=== PATIENT | male | born 1975 | race American Indian/Alaskan Native ===

== ENCOUNTER 2021-03-26 06:15 | Inpatient (IN) | payer OTHER ==
[2021-03-26 06:50] LABS: Hematocrit 38.2 % (35.5-45.6); Hemoglobin 13.7 gm/dl (11.8-15.2); Mean Corpuscular HGB Conc 36 % (32-34); Mean Corpuscular Volume 80 fl (84-94); Platelet Count 248 K/mm3 (140-440); Red Blood Count 4.79 M/mm3 (3.65-5.03); Red Cell Distribution Width 14.7 % (13.2-15.2)
[2021-03-26 07:02] LABS: BUN/Creatinine Ratio 10; Blood Urea Nitrogen 10 mg/dL (9-20); Calcium 8.5 mg/dL (8.4-10.2); Hemolysis Index 12
[2021-03-26] MEDS ORDERED: ACETAMINOPHEN 500 MG TAB PO ONE (07:20)
--- NOTE | 2021-03-26 07:57 | XRay Report ---
CHEST 2 VIEWS INDICATION: Chest discomfort shortness of breath rib pain. COMPARISON: None FINDINGS: Support devices: None. Heart: Within normal limits. Lungs/pleura: No acute air space or interstitial disease. No pneumothorax. Additional findings: No acute osseous abnormality is appreciated. There does appear to be bilateral c ervical ribs, left greater than right. IMPRESSION: No acute findings. Signer Name: Jose Christian Jr, MD Signed: 03/26/2021 7:53 AM Workstation Name: [id number]
[2021-03-26 08:06] LABS: Albumin 3.7 g/dL (3.9-5); Bilirubin,Direct 0.2 mg/dL (0-0.2)
--- NOTE | 2021-03-26 08:36 | Emergency Department Report ---
ED General Adult HPI - General Chief complaint: Pain General Stated complaint: RT RIB PAIN X4 DAYS Time Seen by Provider: 03/26/21 07:18 Source: patient, EMS Mode of arrival: Ambulatory Limitations: No Limitations - History of Present Illness Initial comments: 45-year-old -Russian male who is HIV positive and is noncompliant on no medications present to the emergency room reporting right upper quadrant and rib pain for 1 week. Patient is not vaccinated. Decrease in appetite fever chills and vomiting. Denies any diarrhea. Has no known drug allergies. Past medical history of HIV currently on no medications and no primary care provider. Patient presents with a fever of 101.6 mildly tachycardic at 98. Onset/Timin -: week(s) Location: chest (Right side), abdomen (Right side) Radiation: non-radiation Severity scale (0 -10): 5 Quality: stabbing, sharp Consistency: constant Improves with: none Worsens with: none Associated Symptoms: fever/chills, loss of appetite, nausea/vomiting (Vomiting) Treatments Prior to Arrival: none - Related Data Previous Rx's Medication Instructions Recorded Last Taken Type levoFLOXacin [Levaquin] 750 mg PO QDAY 5 Days #5 tablet 03/28/21 Unknown Rx Allergies Allergy/AdvReac Type Severity Reaction Status Date / Time No Known Allergies Allergy Unverified 03/26/21 06:21 ED Review of Systems ROS: Stated complaint: RT RIB PAIN X4 DAYS Other details as noted in HPI Comment: All other systems reviewed and negative ED Past Medical Hx - Past Medical History Previous Medical History?: Yes Hx HIV: Yes - Surgical History Past Surgical History?: No - Medications Home Medications: Home Medications Medication Instructions Recorded Confirmed Last Taken Type levoFLOXacin [Levaquin] 750 mg PO QDAY 5 Days #5 tablet 03/28/21 Unknown Rx ED Physical Exam - General Limitations: No Limitations General appearance: alert, in no apparent distress - Head Head exam: Present: atraumatic, normocephalic - Eye Eye exam: Present: normal appearance - ENT ENT exam: Present: normal external ear exam - Neck Neck exam: Present: normal inspection, full ROM - Respiratory Respiratory exam: Present: normal lung sounds bilaterally - Cardiovascular Cardiovascular Exam: Present: tachycardia - GI/Abdominal GI/Abdominal exam: Present: soft, tenderness. Absent: distended - Extremities Exam Extremities exam: Present: normal inspection, full ROM - Back Exam Back exam: Present: normal inspection, full ROM - Neurological Exam Neurological exam: Present: alert, oriented X3, normal gait - Psychiatric Psychiatric exam: Present: normal affect, normal mood - Skin Skin exam: Present: warm, dry, intact, normal color. Absent: rash ED Course Vital Signs 03/26/21 03/26/21 03/26/21 06:24 07:47 21:10 Temperature 101.0 F H Pulse Rate 98 H Respiratory 25 H 16 Rate Blood Pressure 133/76 O2 Sat by Pulse 94 97 Oximetry 03/27/21 03/27/21 03/27/21 21:46 22:16 22:30 Temperature Pulse Rate 54 L 58 L Respiratory 17 20 15 Rate Blood Pressure O2 Sat by Pulse 95 95 96 Oximetry 03/27/21 03/27/21 03/27/21 22:46 23:00 23:16 Temperature Pulse Rate 70 74 81 Respiratory 20 21 26 H Rate Blood Pressure 109/65 O2 Sat by Pulse 95 95 95 Oximetry 03/27/21 03/27/21 03/28/21 23:30 23:46 00:30 Temperature Pulse Rate 61 55 L 57 L Respiratory 21 19 22 Rate Blood Pressure 109/65 112/70 102/52 O2 Sat by Pulse 95 99 96 Oximetry 03/28/21 03/28/21 03/28/21 00:46 01:00 01:10 Temperature Pulse Rate 51 L 52 L 55 L Respiratory 22 18 20 Rate Blood Pressure 104/62 104/62 106/64 O2 Sat by Pulse 95 98 95 Oximetry 03/28/21 03/28/21 03/28/21 02:45 02:51 03:01 Temperature Pulse Rate Respiratory 19 17 19 Rate Blood Pressure O2 Sat by Pulse 95 98 96 Oximetry 03/28/21 03/28/21 03/28/21 03:11 03:21 03:31 Temperature Pulse Rate Respiratory 19 19 21 Rate Blood Pressure 106/58 O2 Sat by Pulse 96 96 96 Oximetry 03/28/21 03/28/21 03:41 03:51 Temperature Pulse Rate Respiratory 20 18 Rate Blood Pressure 109/66 109/66 O2 Sat by Pulse 96 96 Oximetry ED Medical Decision Making - Lab Data Result diagrams: 03/27/21 15:01 03/27/21 15:01 - Radiology Data Radiology results: report reviewed [facility] [address] [place] [id number] XRay Report Signed Patient: GAEL HAYNES MR#: [id number] 1 : 1975 Acct:[id number] Age/Sex: 45 / M ADM Date: 03/26/21 Loc: ED Attending Dr: Ordering Physician: ASHLYN ZACARIAS Date of Service: 03/26/21 Procedure(s): XR chest routine 2V Accession Number(s): [id number] cc: ASHLYN ZACARIAS Fluoro Time In Minutes: CHEST 2 VIEWS INDICATION: Chest discomfort shortness of breath rib pain. COMPARISON: None FINDINGS: Support devices: None. Heart: Within normal limits. Lungs/pleura: No acute air space or interstitial disease. No pneumothorax. Additional findings: No acute osseous abnormality is appreciated. There does appear to be bilateral cervical ribs, left greater than right. IMPRESSION: No acute findings. Signer Name: Jose Christian Jr, MD Signed: 03/26/2021 7:53 AM Workstation Name: [id number] Transcribed By: TTR Dictated By: JOSE CHRISTIAN JR, MD Electronically Authenticated By: JOSE CHRISTIAN JR, MD Signed Date/Time: 03/26/21752 DD/ 0 TD/TT: [facility] [address] [place] [id number] Cat Scan Report Signed Patient: GAEL HAYNES MR#: [id number] 1 : 1975 Acct:[id number] Age/Sex: 45 / M ADM Date: 03/26/21 Loc: ED Attending Dr: Ordering Physician: ASHLYN ZACARIAS Date of Service: 03/26/21 Procedure(s): CT abdomen pelvis w con Accession Number(s): [id number] cc: ASHLYN ZACARIAS CT abdomen pelvis w con INDICATION / CLINICAL INFORMATION: ruq TTP with fever. TECHNIQUE: Axial CT images were obtained through the abdomen and pelvis after IV contrast. All CT scans at this location are performed using CT dose reduction for ALARA by means of automated exposure control. COMPARISON: Chest radiograph from same day, 03/26/2021. FINDINGS: LOWER CHEST: There is airspace consolidation within the right lower lobe. LIVER: No significant abnormality GALLBLADDER/BILIARY TREE: No significant abnormality PANCREAS: No significant abnormality SPLEEN: No significant abnormality ADRENALS: No significant abnormality KIDNEYS / URETER: No significant abnormality URINARY BLADDER: No significant abnormality REPRODUCTIVE ORGANS: No significant abnormality STOMACH / BOWEL: No significant abnormality. The appendix is normal in caliber. LYMPH NODES: No significant adenopathy. VASCULATURE: No significant abnormality. OTHER: No free air, free fluid, or focal fluid collection is identified. SKELETAL SYSTEM: No acute osseous findings. IMPRESSION: 1. Airspace consolidation within the right lower lobe, most compatible with pneumonia. 2. No acute process of the abdomen or pelvis. Signer Name: Remi Garner MD Signed: 03/26/2021 10:46 AM Workstation Name: [id number] Transcribed By: ADAMARIS Dictated By: REMI GARNER MD Electronically Authenticated By: REMI GARNER MD Signed Date/Time: 03/26/21 1046 DD/ 1043 TD/TT: - Medical Decision Making 45-year-old -Russian male who is HIV positive and is noncompliant on no medications present to the emergency room reporting right upper quadrant and rib pain for 1 week. Patient is not vaccinated. Decrease in appetite fever chills and vomiting. Denies any diarrhea. Has no known drug allergies. Past medical history of HIV currently on no medications and no primary care provider. Patient presents with a fever of 101.6 mildly tachycardic at 98. Serum WBCs 20, mildly elevation of his LFTs, D-dimer is within normal limits, lipase is normal. Urinalysis pending acetaminophen ordered, INT normal saline CT abdomen and pelvis and Zosyn 3.37 mg have been ordered per sepsis protocol. Critical Care Time: Yes (35) Critical care attestation.: If time is entered above; I have spent that time in minutes in the direct care of this critically ill patient, excluding procedure time. ED Disposition Clinical Impression: Acute hypoxemic respiratory failure, Pneumonia, Suspected 2019 novel coronavirus infection, Sepsis, DVT prophylaxis HIV (human immunodeficiency virus infection) Qualifiers: HIV symptom status: unspecified Qualified Code(s): B20 - Human immunodeficiency virus [HIV] disease Disposition: 02 SHORT TERM HOSPITAL Is pt being admited?: Yes Condition: Fair
[2021-03-26] MEDS ORDERED: PIPERACILLIN/TAZOBACTAM 3.375 3.375 GM/50 ML BAG IV ONE (09:07)
[2021-03-26] MEDS ORDERED: SODIUM CHLORIDE 0.9% 1000 ML 1,000 ML IV ONE (09:12)
--- NOTE | 2021-03-26 10:51 | Cat Scan Report ---
CT abdomen pelvis w con INDICATION / CLINICAL INFORMATION: ruq TTP with fever. TECHNIQUE: Axial CT images were obtained through the abdomen and pelvis after IV contrast. All CT sc ans at this location are performed using CT dose reduction for ALARA by means of automated exposure c ontrol. COMPARISON: Chest radiograph from same day, 03/26/2021. FINDINGS: LOWER CHEST: There is airspace consolidation within the right lower lobe. LIVER: No significant abnormality GALLBLADDER/BILIARY TREE: No significant abnormality PANCREAS: No significant abnormality SPLEEN: No significant abnormality ADRENALS: No significant abnormality KIDNEYS / URETER: No significant abnormality URINARY BLADDER: No significant abnormality REPRODUCTIVE ORGANS: No significant abnormality STOMACH / BOWEL: No significant abnormality. The appendix is normal in caliber. LYMPH NODES: No significant adenopathy. VASCULATURE: No significant abnormality. OTHER: No free air, free fluid, or focal fluid collection is identified. SKELETAL SYSTEM: No acute osseous findings. IMPRESSION: 1. Airspace consolidation within the right lower lobe, most compatible with pneumonia. 2. No acute process of the abdomen or pelvis. Signer Name: Lukasz Garner MD Signed: 03/26/2021 10:46 AM Workstation Name: [id number]
[2021-03-26 11:05] LABS: Band Neutrophils # (Manual) 0.6 K/mm3; Platelet Estimate Consistent w Auto; RBC Morphology Normal; Smudge Cells 1+; Total Cells Counted 100
[2021-03-26] MEDS ORDERED: AZITHROMYCIN/NS 500 MG/250 ML 500 MG/250 ML BAG IV ONE (11:24)
[2021-03-26] MEDS ORDERED: dexAMETHasone 20 MG/5 ML VIAL IV ONE (11:24)
[2021-03-26] MEDS ORDERED: SODIUM CHLORIDE 0.9% 1000 ML IV SOLN IV ONE ×2 (11:43→12:43)
[2021-03-26] MEDS ORDERED: HYDROmorphone 1 MG/1 ML INJ IV PRN ×2 (11:43→12:32)
[2021-03-26] MEDS ORDERED: ACETAMINOPHEN 325 MG TAB PO PRN ×2 (12:32→12:43)
[2021-03-26] MEDS ORDERED: ALBUTEROL 2.5 MG/3 ML NEBU IH PRN (12:32)
[2021-03-26] MEDS ORDERED: oxyCODONE /ACETAMINOPHEN 5-325MG TAB PO PRN (12:32)
[2021-03-26] MEDS ORDERED: ONDANSETRON 4 MG/2 ML INJ IV PRN (12:32)
--- NOTE | 2021-03-26 12:46 | History and Physical Report ---
History of Present Illness Chief complaint: My side hurts History of present illness: 45 YO Male with HIV Disease not currently taking antiretroviral therapy presents to ED for evaluation. Patient reported "my side hurts". Patient states that he has experienced right flank discomfort over the past week with persistent symptoms over the same timeframe. Patient acknowledges malaise, fever, body aches, decreased exercise tolerance over the past 1 week with persistent and worsening symptoms over the same timeframe. EMS was notified and upon arrival the patient was found to be in distress and subsequently transported to [facility] for further care and evaluation of the aforementioned symptoms. The patient was seen and evaluated in the emergency department. All lab and imaging studies reviewed. The patient was found to have a pulse oximetry of 89% on room air which is consistent with acute hypoxemic respiratory failure. Patient was found to have a temperature of 101.1 F, as well as a respiratory rate in the 30s. CT scan revealed a right lower lobe pneumonia which was complicated by sepsis. Patient admitted to medical floor and initiated on sepsis protocol as well as coronavirus protocol. Patient denies chills, chest pain, palpitation, skin rash, recent ill contact, or known exposure to COVID-19. No prior admission for review. No medication listed at time of admission for reconciliation. Patient is not vaccinated against coronavirus. Past History Past Medical History: HIV/AIDS Past Surgical History: No surgical history, Other (Reviewed) Social history: single. denies: smoking, alcohol abuse, prescription drug abuse Family history: hypertension Medications and Allergies Allergies Allergy/AdvReac Type Severity Reaction Status Date / Time No Known Allergies Allergy Unverified 03/26/21 06:21 Active Meds: Active Medications Acetaminophen (Acetaminophen 325 Mg Tab) 650 mg PO Q4H PRN PRN Reason: Pain MILD(1-3)/Fever >100.5/GUZMÁN Acetaminophen (Acetaminophen 325 Mg Tab) 650 mg PO Q6H PRN PRN Reason: Pain, Mild (1-3) Albuterol (Albuterol 2.5 Mg/3 Ml Nebu) 2.5 mg IH Q4HRT PRN PRN Reason: Shortness Of Breath Hydromorphone HCl (Hydromorphone 1 Mg/1 Ml Inj) 0.25 mg IV Q4H PRN PRN Reason: Pain, Moderate (4-6) Hydromorphone HCl (Hydromorphone 1 Mg/1 Ml Inj) 0.5 mg IV Q3H PRN PRN Reason: Pain , Severe (7-10) Ceftriaxone Sodium (Rocephin/Ns 2 Gm/100 Ml) 2 gm in 100 mls @ 200 mls/hr IV Q24H DELGADO; Protocol Azithromycin (Zithromax/Ns) 500 mg in 250 mls @ 250 mls/hr IV Q24H DELGADO; Protocol Ondansetron HCl (Ondansetron 4 Mg/2 Ml Inj) 4 mg IV Q8H PRN PRN Reason: Nausea And Vomiting Oxycodone/Acetaminophen (Oxycodone /Acetaminophen 5-325mg Tab) 1 tab PO Q12H PRN PRN Reason: Pain, Moderate (4-6) Sodium Chloride (Sodium Chloride 0.9% 10 Ml Flush Syringe) 10 ml IV BID DELGADO Sodium Chloride (Sodium Chloride 0.9% 10 Ml Flush Syringe) 10 ml IV PRN PRN PRN Reason: LINE FLUSH Sodium Chloride (Sodium Chloride 0.9% 1000 Ml Iv Soln) 2,160 ml 30 ml/kg (2160 ml) IV ONCE ONE Stop: 03/26/21 12:44 Review of Systems Constitutional: fever, fatigue, weakness, malaise Ears, nose, mouth and throat: no ear pain, no ear discharge, no decreased hearing, no nose pain, no sinus pressure Cardiovascular: no chest pain, no orthopnea, no rapid/irregular heart beat, no syncope, no lightheadedness Respiratory: no cough, no excessive sputum, no hemoptysis Gastrointestinal: no abdominal pain, no nausea, no vomiting, no diarrhea Genitourinary Male: no hematuria, no flank pain, no discharge, no urinary frequency, no urinary hesitancy Rectal: no pain, no incontinence, no bleeding Musculoskeletal: no neck stiffness, no neck pain, no shooting arm pain, no shooting leg pain Integumentary: no rash, no pruritis, no redness, no sores, no wounds Neurological: no head injury, no transient paralysis, no paralysis, no parathesias, no numbness, no tingling, no tremors Psychiatric: no anxiety, no insomnia, no change in appetite, no change in libido, no suicidal ideation Endocrine: no cold intolerance, no heat intolerance, no excessive thirst, no polydipsia, no polyuria, no excessive sweating Hematologic/Lymphatic: no easy bruising, no easy bleeding, no lymphadenopathy Allergic/Immunologic: no urticaria, no wheezing, no persistent infections, no anaphylaxis Exam - Constitutional Vitals: Temp Pulse Resp BP Pulse Ox 101.0 F H 98 H 16 133/76 94 03/26/21 06:24 03/26/21 06:24 03/26/21 07:47 03/26/21 06:24 03/26/21 06:24 General appearance: Present: mild distress - EENT Eyes: Present: PERRL ENT: hearing intact, clear oral mucosa - Neck Neck: Present: supple, normal ROM - Respiratory Respiratory effort: labored, accessory muscle use Respiratory: bilateral: diminished, rales - Cardiovascular Heart Sounds: Present: S1 & S2. Absent: rub, click - Extremities Extremities: pulses symmetrical, No edema Peripheral Pulses: within normal limits - Abdominal General gastrointestinal: Present: soft, non-tender, non-distended, normal bowel sounds Male genitourinary: Present: normal - Integumentary Integumentary: Present: clear, warm, dry - Musculoskeletal Musculoskeletal: gait normal, strength equal bilaterally - Psychiatric Psychiatric: appropriate mood/affect, intact judgment & insight - Neurologic Neurologic: CNII-XII intact, moves all extremities Results - Labs CBC & Chem 7: 03/26/21 06:40 03/26/21 11:50 Labs: Abnormal lab results 03/26/21 03/26/21 03/26/21 Range/Units 06:40 06:40 06:40 WBC 20.8 H (4.5-11.0) K/mm3 MCV 80 L (84-94) fl MCHC 36 H (32-34) % Seg Neutrophils # Man 13.5 H (1.8-7.7) K/mm3 Monocytes # (Manual) 1.2 H (0.0-0.8) K/mm3 Sodium 131 L (137-145) mmol/L Chloride 97.5 L (98-107) mmol/L Carbon Dioxide 21 L (22-30) mmol/L Glucose 109 H (75-100) mg/dL AST 51 H (5-40) units/L ALT 96 H (7-56) units/L Total Protein 9.2 H (6.3-8.2) g/dL Albumin 3.7 L (3.9-5) g/dL Assessment and Plan - Patient Problems (1) Sepsis Current Visit: Yes Status: Acute Plan to address problem: Sepsis protocol: CBC, CMP, chest x-ray, urinalysis, IV fluid resuscitation therapy, IV antibiotic therapy, supplemental oxygen, pulse oximetry, monitor urine output every shift, monitor I's/O, monitor fluid balance, maintain mean arterial pressure greater than or equal to 65, blood culture, serial lactic acid level. (2) Acute hypoxemic respiratory failure Current Visit: Yes Status: Acute Plan to address problem: Supplemental oxygen, pulse oximetry, nebulizer therapy, chest x-ray, pulmonary toilet (3) Pneumonia Current Visit: Yes Status: Acute Plan to address problem: Pneumonia protocol: Chest x-ray, CBC, CMP, IV antibiotic therapy, supplemental oxygen, pulse oximetry, nebulizer therapy, blood culture. (4) Suspected 2019 novel coronavirus infection Current Visit: Yes Status: Acute Plan to address problem: Coronavirus protocol: IV antibiotic therapy, IV steroid therapy, pulse oximetry, nebulizer therapy, vitamin C therapy, vitamin D therapy, zinc therapy, prophylactic anticoagulation, prone positioning while in bed. (5) HIV (human immunodeficiency virus infection) Current Visit: Yes Status: Acute Qualifiers: HIV symptom status: unspecified Qualified Code(s): B20 - Human i mmunodeficiency virus [HIV] disease Plan to address problem: Infectious disease service consulted, supportive care, outpatient infectious diseases services follow-up. (6) DVT prophylaxis Current Visit: Yes Status: Acute Plan to address problem: SCD to bilateral lower extremities while in bed, prophylactic anticoagulation
[2021-03-26 12:49] LABS: Partial Thromboplastin Time 49.6 Sec. (24.2-36.6)
[2021-03-26 12:51] LABS: C-Reactive Protein 16.9 mg/dL (0.00-1.30)
--- NOTE | 2021-03-26 14:21 | Consultation ---
History of Present Illness - Reason for Consult Consult date: 03/26/21 - History of Present Illness 45-year-old man past medical history HIV not on ART admitted to the hospital complaining of right upper quadrant pain. This began approximate 1 week prior to admission and associated with decreased appetite, fevers, chills. He is not vaccinated for Covid. Febrile to 101 with a white count 20.8. Normal renal function, elevated inflammatory markers. Covid pending. Blood cultures no growth so far. Currently on ceftriaxone and azithromycin. Imaging personally reviewed: Chest x-ray: No acute pneumonia CT abdomen pelvis: Airspace consolidation in the right lower lobe, no abnormality of the abdomen Review of systems: Deferred to reduce to the risk of transmission of COVID-19 Medications and Allergies Allergies Allergy/AdvReac Type Severity Reaction Status Date / Time No Known Allergies Allergy Unverified 03/26/21 06:21 Active Meds: Active Medications Acetaminophen (Acetaminophen 325 Mg Tab) 650 mg PO Q4H PRN PRN Reason: Pain MILD(1-3)/Fever >100.5/GUZMÁN Albuterol (Albuterol 2.5 Mg/3 Ml Nebu) 2.5 mg IH Q4HRT PRN PRN Reason: Shortness Of Breath Ascorbic Acid (Ascorbic Acid 500 Mg Tab) 500 mg PO BID DELGADO Cholecalciferol (Cholecalciferol (Vit D3) 1000 Unit (25 Mcg) Tab) 1,000 unit PO QDAY DELGADO Heparin Sodium (Porcine) (Heparin 5,000 Unit/1 Ml Vial) 5,000 unit SUB-Q Q12HR DELGADO Hydromorphone HCl (Hydromorphone 1 Mg/1 Ml Inj) 0.25 mg IV Q4H PRN PRN Reason: Pain, Moderate (4-6) Hydromorphone HCl (Hydromorphone 1 Mg/1 Ml Inj) 0.5 mg IV Q3H PRN PRN Reason: Pain , Severe (7-10) Ceftriaxone Sodium (Rocephin/Ns 2 Gm/100 Ml) 2 gm in 100 mls @ 200 mls/hr IV Q24H DELGADO; Protocol Azithromycin (Zithromax/Ns) 500 mg in 250 mls @ 250 mls/hr IV Q24H DELGADO; Protocol Methylprednisolone Sodium Succinate (Methylprednisolone Sod Succinate 40 Mg/1 Ml Inj) 40 mg IV Q8H DELGADO Ondansetron HCl (Ondansetron 4 Mg/2 Ml Inj) 4 mg IV Q8H PRN PRN Reason: Nausea And Vomiting Oxycodone/Acetaminophen (Oxycodone /Acetaminophen 5-325mg Tab) 1 tab PO Q12H PRN PRN Reason: Pain, Moderate (4-6) Sodium Chloride (Sodium Chloride 0.9% 10 Ml Flush Syringe) 10 ml IV BID DELGADO Sodium Chloride (Sodium Chloride 0.9% 10 Ml Flush Syringe) 10 ml IV PRN PRN PRN Reason: LINE FLUSH Zinc Sulfate (Zinc Sulfate 220 Mg Cap) 220 mg PO BID DELGADO Physical Examination - Physical Exam Narrative exam: Physical exam deferred to reduce risk of transmission of COVID-19. Please refer to primary team's note. - Constitutional Vitals: Vital Signs Temp Pulse Resp BP Pulse Ox 101.0 F H 98 H 16 133/76 94 03/26/21 06:24 03/26/21 06:24 03/26/21 07:47 03/26/21 06:24 03/26/21 06:24 Temperature -Last 24 Hours Temperature 101.0 F Results - Labs CBC & Chem 7: 03/26/21 06:40 03/26/21 11:50 Labs: Abnormal lab results 03/26/21 03/26/21 03/26/21 Range/Units 06:40 06:40 06:40 WBC 20.8 H (4.5-11.0) K/mm3 MCV 80 L (84-94) fl MCHC 36 H (32-34) % Seg Neutrophils # Man 13.5 H (1.8-7.7) K/mm3 Monocytes # (Manual) 1.2 H (0.0-0.8) K/mm3 APTT (24.2-36.6) Sec. Sodium 131 L (137-145) mmol/L Chloride 97.5 L (98-107) mmol/L Carbon Dioxide 21 L (22-30) mmol/L Glucose 109 H (75-100) mg/dL AST 51 H (5-40) units/L ALT 96 H (7-56) units/L C-Reactive Protein (0.00-1.30) mg/dL Total Protein 9.2 H (6.3-8.2) g/dL Albumin 3.7 L (3.9-5) g/dL 08/09/21 08/09/21 Range/Units 11:50 11:50 WBC (4.5-11.0) K/mm3 MCV (84-94) fl MCHC (32-34) % Seg Neutrophils # Man (1.8-7.7) K/mm3 Monocytes # (Manual) (0.0-0.8) K/mm3 APTT 49.6 H (24.2-36.6) Sec. Sodium (137-145) mmol/L Chloride (98-107) mmol/L Carbon Dioxide (22-30) mmol/L Glucose (75-100) mg/dL AST (5-40) units/L ALT (7-56) units/L C-Reactive Protein 16.90 H (0.00-1.30) mg/dL Total Protein (6.3-8.2) g/dL Albumin (3.9-5) g/dL Assessment and Plan Cultures: Blood culture no growth so far A/P: 45-year-old man with medical history HIV noncompliant on therapy admitted with right-sided pneumonia #Right-sided pneumonia: Pending Covid PCR, procalcitonin. Unclear immune function, no cervical labs. Continue. Antibiotics. #Covid PUI: Pending PCR #HIV: Unclear in status and viral load. Not on ART. #Acute sepsis: Present with fevers leukocytosis, likely secondary to pneumonia. Recs: -Follow-up Covid PCR -Follow-up procalcitonin -Ordered CD4 and viral load -Continue empiric ceftriaxone azithromycin for now -If unresponsive would start empiric high-dose Bactrim for PJP. Thank you for the consult, we will continue to follow. MD Sree Yung [facility] O: [phone] F: [phone]
[2021-03-26] MEDS: cefTRIAXone/NS 2 GM/100 ML 2 GM/100 ML BAG IV SCH (17:15)
[2021-03-26] MEDS: methylPREDNISolone Sod Succinate 40 MG/1 ML INJ IV SCH (17:17)
[2021-03-26] MEDS ORDERED: SODIUM CHLORIDE 0.9% 1000 ML 2,000 ML ONE (17:21)
[2021-03-27] MEDS: ASCORBIC ACID 500 MG TAB PO SCH ×3 (00:22→21:56)
[2021-03-27] MEDS: methylPREDNISolone Sod Succinate 40 MG/1 ML INJ IV SCH ×4 (00:22→21:56)
[2021-03-27] MEDS: ZINC SULFATE 220 MG CAP PO SCH ×3 (00:22→21:55)
[2021-03-27] MEDS: HEPARIN 5,000 UNIT/1 ML VIAL SUB-Q SCH ×3 (00:22→21:56)
[2021-03-27] MEDS: CHOLECALCIFEROL (VIT D3) 1000 UNIT (25 mcg) TAB PO SCH (09:35)
[2021-03-27] MEDS ORDERED: NEOMY 40 MG/POLYMYXIN B 200,000 UNITS/ML (GU) AMPULE IR ONE (10:21)
[2021-03-27 10:43] LABS: Bilirubin,Urine NEG (Negative); Blood,Urine NEG (Negative); Color,Urine Yellow (Yellow); Mucus,Urine FEW /HPF; Protein,Urine <15 mg/dL mg/dL (Negative)
[2021-03-27] MEDS ORDERED: AZITHROMYCIN/NS 500 MG/250 ML 500 MG/250 ML BAG IV SCH (12:00)
[2021-03-27 15:38] LABS: Basophils % (Auto) 0.2 % (0.0-1.8); Hematocrit 42.2 % (35.5-45.6); Hemoglobin 13.9 gm/dl (11.8-15.2); Lymphocytes # (Auto) 2.5 K/mm3 (1.2-5.4); Lymphocytes % (Auto) 14.2 % (13.4-35.0); Mean Corpuscular HGB Conc 33 % (32-34); Mean Corpuscular Volume 82 fl (84-94); Monocytes # (Auto) 0.5 K/mm3 (0.0-0.8); Monocytes % (Auto) 2.9 % (0.0-7.3); Platelet Count 291 K/mm3 (140-440); Red Blood Count 5.13 M/mm3 (3.65-5.03); Red Cell Distribution Width 15.1 % (13.2-15.2)
[2021-03-27 15:47] LABS: Alanine Aminotransferase 70 units/L (7-56); Albumin 2.8 g/dL (3.9-5); BUN/Creatinine Ratio 25; Blood Urea Nitrogen 20 mg/dL (9-20); Calcium 7.9 mg/dL (8.4-10.2); Hemolysis Index 9
--- NOTE | 2021-03-27 20:32 | Progress Note ---
Assessment and Plan - Patient Problems (1) Sepsis Current Visit: Yes Status: Acute Plan to address problem: Sepsis protocol: CBC, CMP, chest x-ray, urinalysis, IV fluid resuscitation therapy, IV antibiotic therapy, supplemental oxygen, pulse oximetry, monitor urine output every shift, monitor I's/O, monitor fluid balance, maintain mean arterial pressure greater than or equal to 65, blood culture, serial lactic acid level. (2) Acute hypoxemic respiratory failure Current Visit: Yes Status: Acute Plan to address problem: Supplemental oxygen, pulse oximetry, nebulizer therapy, chest x-ray, pulmonary toilet (3) Pneumonia Current Visit: Yes Status: Acute Plan to address problem: Pneumonia protocol: Chest x-ray, CBC, CMP, IV antibiotic therapy, supplemental oxygen, pulse oximetry, nebulizer therapy, blood culture. (4) Suspected 2019 novel coronavirus infection Current Visit: Yes Status: Acute Plan to address problem: Coronavirus protocol: IV antibiotic therapy, IV steroid therapy, pulse oximetry, nebulizer therapy, vitamin C therapy, vitamin D therapy, zinc therapy, prophylactic anticoagulation, prone positioning while in bed. (5) HIV (human immunodeficiency virus infection) Current Visit: Yes Status: Acute Qualifiers: HIV symptom status: unspecified Qualified Code(s): B20 - Human immunodeficiency virus [HIV] disease Plan to address problem: Infectious disease service consulted, supportive care, outpatient infectious diseases services follow-up. (6) DVT prophylaxis Current Visit: Yes Status: Acute Plan to address problem: SCD to bilateral lower extremities while in bed, prophylactic anticoagulation History Interval history: 45 YO Male HD#2 with coronavirus infection, HIV disease, sepsis, acute hypoxemic respiratory failure. Patient states that he feels better today. Patient denies fever, chills, chest pain, worsening shortness of breath. Patient denies cough. No reported nursing events. Hospitalist Physical - Constitutional Vitals: Temp Pulse Resp BP Pulse Ox 101.0 F H 98 H 16 133/76 97 03/26/21 06:24 03/26/21 06:24 03/26/21 07:47 03/26/21 06:24 03/26/21 21:10 General appearance: Present: mild distress - EENT Eyes: Present: PERRL, EOM intact ENT: hearing intact - Neck Neck: Present: supple - Respiratory Respiratory effort: normal Respiratory: bilateral: diminished - Cardiovascular Rhythm: regular Heart Sounds: Present: S1 & S2 - Extremities Extremities: no ischemia Peripheral Pulses: within normal limits - Abdominal General gastrointestinal: soft, non-tender, non-distended - Integumentary Integumentary: Present: clear, dry - Psychiatric Psychiatric: appropriate mood/affect, cooperative - Neurologic Neurologic: CNII-XII intact Results - Labs CBC & Chem 7: 03/27/21 15:01 03/27/21 15:01 Labs: Laboratory Last Values WBC 17.8 K/mm3 (4.5-11.0) H 03/27/21 15:01 RBC 5.13 M/mm3 (3.65-5.03) H 03/27/21 15:01 Hgb 13.9 gm/dl (11.8-15.2) 03/27/21 15: Hct 42.2 % (35.5-45.6) 03/27/21 15: MCV 82 fl (84-94) L 03/27/21 15: MCH 27 pg (28-32) L 03/27/21 15:01 MCHC 33 % (32-34) 03/27/21 15:01 RDW 15.1 % (13.2-15.2) 03/27/21 15: Plt Count 291 K/mm3 (140-440) 03/27/21 15:01 Lymph % (Auto) 14.2 % (13.4-35.0) 03/27/21 15:01 [place] % (Auto) 2.9 % (0.0-7.3) 03/27/21 15:01 Eos % (Auto) 0.0 % (0.0-4.3) 03/27/21 15:01 Baso % (Auto) 0.2 % (0.0-1.8) 03/27/21 15:01 Lymph # (Auto) 2.5 K/mm3 (1.2-5.4) 03/27/21 15:01 [place] # (Auto) 0.5 K/mm3 (0.0-0.8) 03/27/21 15:01 Eos # (Auto) 0.0 K/mm3 (0.0-0.4) 03/27/21 15:01 Baso # (Auto) 0.0 K/mm3 (0.0-0.1) 03/27/21 15:01 Add Manual Diff Complete 03/26/21 06:40 Total Counted 100 03/26/21 06:40 Seg Neutrophils % 82.7 % (40.0-70.0) H 03/27/21 15:01 Seg Neuts % (Manual) 65.0 % (40.0-70.0) 03/26/21 06:40 Band Neutrophils % 3.0 % 03/26/21 06:40 Lymphocytes % (Manual) 25.0 % (13.4-35.0) 03/26/21 06:40 Reactive Lymphs % (Man) 1.0 % 03/26/21 06:40 Monocytes % (Manual) 6.0 % (0.0-7.3) 03/26/21 06:40 Nucleated RBC % Not Reportable 03/26/21 06:40 Seg Neutrophils # 14.7 K/mm3 (1.8-7.7) H 03/27/21 15:01 Seg Neutrophils # Man 13.5 K/mm3 (1.8-7.7) H 03/26/21 06:40 Band Neutrophils # 0.6 K/mm3 03/26/21 06:40 Lymphocytes # (Manual) 5.2 K/mm3 (1.2-5.4) 03/26/21 06:40 Abs React Lymphs (Man) 0.2 K/mm3 03/26/21 06:40 Monocytes # (Manual) 1.2 K/mm3 (0.0-0.8) H 03/26/21 06:40 Eosinophils # (Manual) 0.0 K/mm3 (0.0-0.4) 03/26/21 06:40 Basophils # (Manual) 0.0 K/mm3 (0.0-0.1) 03/26/21 06:40 Metamyelocytes # 0.0 K/mm3 03/26/21 06:40 Myelocytes # 0.0 K/mm3 03/26/21 06:40 Promyelocytes # 0.0 K/mm3 03/26/21 06:40 Blast Cells # 0.0 K/mm3 03/26/21 06:40 WBC Morphology Not Reportable 03/26/21 06:40 Hypersegmented Neuts Not Reportable 03/26/21 06:40 Hyposegmented Neuts Not Reportable 03/26/21 06:40 Hypogranular Neuts Not Reportable 03/26/21 06:40 Smudge Cells 1+ 03/26/21 06:40 Toxic Granulation Not Reportable 03/26/21 06:40 Toxic Vacuolation Not Reportable 03/26/21 06:40 Dohle Bodies Not Reportable 03/26/21 06:40 Pelger-Huet Anomaly Not Reportable 03/26/21 06:40 Lion Rods Not Reportable 03/26/21 06:40 Platelet Estimate Consistent w auto 03/26/21 06:40 Clumped Platelets Not Reportable 03/26/21 06:40 Plt Clumps, EDTA Not Reportable 03/26/21 06:40 Large Platelets Not Reportable 03/26/21 06:40 Giant Platelets Not Reportable 03/26/21 06:40 Platelet Satelliting Not Reportable 03/26/21 06:40 Plt Morphology Comment Not Reportable 03/26/21 06:40 RBC Morphology Normal 03/26/21 06:40 Dimorphic RBCs Not Reportable 03/26/21 06:40 Polychromasia Not Reportable 03/26/21 06:40 Hypochromasia Not Reportable 03/26/21 06:40 Poikilocytosis Not Reportable 03/26/21 06:40 Anisocytosis Not Reportable 03/26/21 06:40 Microcytosis Not Reportable 03/26/21 06:40 Macrocytosis Not Reportable 03/26/21 06:40 Spherocytes Not Reportable 03/26/21 06:40 Pappenheimer Bodies Not Reportable 03/26/21 06:40 Sickle Cells Not Reportable 03/26/21 06:40 Target Cells Not Reportable 03/26/21 06:40 Tear Drop Cells Not Reportable 03/26/21 06:40 Ovalocytes Not Reportable 03/26/21 06:40 Helmet Cells Not Reportable 03/26/21 06:40 Schofield-[place] Bodies Not Reportable 03/26/21 06:40 [place] Rings Not Reportable 03/26/21 06:40 [place] Cells Not Reportable 03/26/21 06:40 Bite Cells Not Reportable 03/26/21 06:40 Crenated Cell Not Reportable 03/26/21 06:40 Elliptocytes Not Reportable 03/26/21 06:40 Acanthocytes (Spur) Not Reportable 03/26/21 06:40 Rouleaux Not Reportable 03/26/21 06:40 Hemoglobin C Crystals Not Reportable 03/26/21 06:40 Schistocytes Not Reportable 03/26/21 06:40 Malaria parasites Not Reportable 03/26/21 06:40 [place] Bodies Not Reportable 03/26/21 06:40 Hem Pathologist Commnt No 03/26/21 06:40 APTT 49.6 Sec. (24.2-36.6) H 03/26/21 11:50 D-Dimer 159.27 ng/mlDDU (0-234) 03/26/21 11:50 Sodium 136 mmol/L (137-145) L 03/27/21 15:01 Potassium 4.2 mmol/L (3.6-5.0) 03/27/21 15:01 Chloride 106.3 mmol/L (98-107) 03/27/21 15:01 Carbon Dioxide 19 mmol/L (22-30) L 03/27/21 15:01 Anion Gap 15 mmol/L 03/27/21 15:01 BUN 20 mg/dL (9-20) 03/27/21 15:01 Creatinine 0.8 mg/dL (0.8-1.3) 03/27/21 15:01 Estimated GFR > 60 ml/min 03/27/21 15:01 BUN/Creatinine Ratio 25 % 03/27/21 15:01 Glucose 150 mg/dL (75-100) H 03/27/21 15:01 Lactic Acid 1.00 mmol/L (0.7-2.0) 03/26/21 23:43 Calcium 7.9 mg/dL (8.4-10.2) L 03/27/21 15:01 Ferritin 284.4 ng/mL (30.0-300.0) 03/26/21 11:50 Total Bilirubin 0.20 mg/dL (0.1-1.2) 03/27/21 15:01 Direct Bilirubin 0.2 mg/dL (0-0.2) 03/26/21 06:40 Indirect Bilirubin 0.6 mg/dL 03/26/21 06:40 AST 41 units/L (5-40) H 03/27/21 15:01 ALT 70 units/L (7-56) H 03/27/21 15:01 Alkaline Phosphatase 58 units/L (35-129) 03/27/21 15:01 Lactate Dehydrogenase 165 units/L (91-180) 03/26/21 11:50 C-Reactive Protein 16.90 mg/dL (0.00-1.30) H 03/26/21 11:50 Total Protein 8.0 g/dL (6.3-8.2) 03/27/21 15:01 Albumin 2.8 g/dL (3.9-5) L 03/27/21 15:01 Albumin/Globulin Ratio 0.5 % 03/27/21 15:01 Lipase 25 units/L (13-60) 03/26/21 06:40 Procalcitonin 0.54 ng/mL (<0.15) 03/26/21 11:50 Urine Color Yellow (Yellow) 03/27/21 09:42 Urine Turbidity Clear (Clear) 03/27/21 09:42 Urine pH 5.0 (5.0-7.0) 03/27/21 09:42 Ur Specific [place] 1.018 (1.003-1.030) 03/27/21 09:42 Urine Protein <15 mg/dl mg/dL (Negative) 03/27/21 09:42 Urine Glucose (UA) Neg mg/dL (Negative) 03/27/21 09:42 Urine Ketones Neg mg/dL (Negative) 03/27/21 09:42 Urine Blood Neg (Negative) 03/27/21 09:42 Urine Nitrite Neg (Negative) 03/27/21 09:42 Urine Bilirubin Neg (Negative) 03/27/21 09:42 Urine Urobilinogen 2.0 mg/dL (<2.0) 03/27/21 09:42 Ur Leukocyte Esterase Neg (Negative) 03/27/21 09:42 Urine WBC (Auto) 1.0 /HPF (0.0-6.0) 03/27/21 09:42 Urine RBC (Auto) 2.0 /HPF (0.0-6.0) 03/27/21 09:42 Urine Mucus Few /HPF 03/27/21 09:42 Coronavirus (PCR) Negative (Negative) 03/26/21 13:02 Microbiology: Microbiology 03/26/21 09:21 Peripheral/Venous Blood Culture - Preliminary NO GROWTH AFTER 24 HOURS 03/26/21 09:21 Peripheral/Venous Blood Culture - Preliminary NO GROWTH AFTER 24 HOURS Active Medications - Current Medications Current Medications: Generic Name Dose Route Start Last Admin Trade Name Freq PRN Reason Stop Dose Admin Acetaminophen 650 mg 03/26/21 12:32 Acetaminophen 325 Mg Tab PO Q4H PRN Pain MILD(1-3)/Fever >100.5/[id number] Albuterol 2.5 mg 03/26/21 12:32 Albuterol 2.5 Mg/3 Ml Nebu IH Q4HRT PRN Shortness Of Breath Ascorbic Acid 500 mg 03/26/21 22:00 03/27/21 09:36 Ascorbic Acid 500 Mg Tab PO 500 mg BID DELGADO Administration Cholecalciferol 1,000 unit 03/27/21 10:00 03/27/21 09:35 Cholecalciferol (Vit D3) 1000 Unit (25 Mcg) Tab PO 1,000 unit QDAY DELGADO Administration Heparin Sodium (Porcine) 5,000 unit 03/26/21 22:00 03/27/21 09:39 Heparin 5,000 Unit/1 Ml Vial SUB-Q 5,000 unit Q12HR DELGADO Administration Hydromorphone HCl 0.25 mg 03/26/21 11:43 03/27/21 00:48 Hydromorphone 1 Mg/1 Ml Inj IV 0.25 mg Q4H PRN Administration Pain, Moderate (4-6) Hydromorphone HCl 0.5 mg 03/26/21 12:32 03/26/21 20:20 Hydromorphone 1 Mg/1 Ml Inj IV 0.5 mg Q3H PRN Administration Pain , Severe (7-10) Ceftriaxone Sodium 2 gm in 100 mls @ 200 mls/hr 03/26/21 14:00 03/26/21 17:15 Rocephin/Ns 2 Gm/100 Ml IV 200 mls/hr Q24H DELGADO Administration Protocol Azithromycin 500 mg in 250 mls @ 250 mls/hr 03/27/21 12:00 03/27/21 12:56 Zithromax/Ns IV 250 mls/hr Q24H DELGADO Administration Protocol Methylprednisolone Sodium Succinate 40 mg 03/26/21 14:00 03/27/21 06:45 Methylprednisolone Sod Succinate 40 Mg/1 Ml Inj IV 40 mg Q8H DELGADO Administration Ondansetron HCl 4 mg 03/26/21 12:32 Ondansetron 4 Mg/2 Ml Inj IV Q8H PRN Nausea And Vomiting Oxycodone/Acetaminophen 1 tab 03/26/21 12:32 Oxycodone /Acetaminophen 5-325mg Tab PO Q12H PRN Pain, Moderate (4-6) Sodium Chloride 10 ml 03/26/21 22:00 03/27/21 09:37 Sodium Chloride 0.9% 10 Ml Flush Syringe IV 10 ml BID DELGADO Administration Sodium Chloride 10 ml 03/26/21 12:32 Sodium Chloride 0.9% 10 Ml Flush Syringe IV PRN PRN LINE FLUSH Zinc Sulfate 220 mg 03/26/21 22:00 03/27/21 09:35 Zinc Sulfate 220 Mg Cap PO 220 mg BID DELGADO Administration
[2021-03-27] MEDS: cefTRIAXone/NS 2 GM/100 ML 2 GM/100 ML BAG IV SCH (21:40)
[2021-03-28] MEDS: methylPREDNISolone Sod Succinate 40 MG/1 ML INJ IV SCH ×2 (06:18→13:37)
--- NOTE | 2021-03-28 08:14 | Progress Note ---
Assessment and Plan Assessment and plan: (1) Sepsis Current Visit: Yes Status: Acute Plan to address problem: Sepsis protocol: CBC, CMP, chest x-ray, urinalysis, IV fluid resuscitation therapy, IV antibiotic therapy, supplemental oxygen, pulse oximetry, monitor urine output every shift, monitor I's/O, monitor fluid balance, maintain mean arterial pressure greater than or equal to 65, blood culture, serial lactic acid level. (2) Acute hypoxemic respiratory failure Current Visit: Yes Status: Acute Plan to address problem: Supplemental oxygen, pulse oximetry, nebulizer therapy, chest x-ray, pulmonary toilet (3) Pneumonia Current Visit: Yes Status: Acute Plan to address problem: Pneumonia protocol: Chest x-ray, CBC, CMP, IV antibiotic therapy, supplemental oxygen, pulse oximetry, nebulizer therapy, blood culture. (4) Suspected 2019 novel coronavirus infection Current Visit: Yes Status: Acute Plan to address problem: Coronavirus protocol: IV antibiotic therapy, IV steroid therapy, pulse oximetry, nebulizer therapy, vitamin C therapy, vitamin D therapy, zinc therapy, prophylactic anticoagulation, prone positioning while in bed. (5) HIV (human immunodeficiency virus infection) Current Visit: Yes Status: Acute Qualifiers: HIV symptom status: unspecified Qualified Code(s): B20 - Human immunodeficiency virus [HIV] disease Plan to address problem: Infectious disease service consulted, supportive care, outpatient infectious diseases services follow-up. (6) DVT prophylaxis Current Visit: Yes Status: Acute Plan to address problem: SCD to bilateral lower extremities while in bed, prophylactic anticoagulation Hospitalist Physical - Constitutional Vitals: Temp Pulse Resp BP Pulse Ox 97.6 F 52 L 16 127/70 98 03/28/21 04:16 03/28/21 04:16 03/28/21 04:16 03/28/21 04:16 03/28/21 04:29 General appearance: Present: mild distress Results - Labs CBC & Chem 7: 03/27/21 15:01 03/27/21 15:01 Labs: Laboratory Last Values WBC 17.8 K/mm3 (4.5-11.0) H 03/27/21 15:01 RBC 5.13 M/mm3 (3.65-5.03) H 03/27/21 15:01 Hgb 13.9 gm/dl (11.8-15.2) 03/27/21 15:01 Hct 42.2 % (35.5-45.6) 03/27/21 15:01 MCV 82 fl (84-94) L 03/27/21 15:01 MCH 27 pg (28-32) L 03/27/21 15:01 MCHC 33 % (32-34) 03/27/21 15:01 RDW 15.1 % (13.2-15.2) 03/27/21 15:01 Plt Count 291 K/mm3 (140-440) 03/27/21 15:01 Lymph % (Auto) 14.2 % (13.4-35.0) 03/27/21 15:01 [place] % (Auto) 2.9 % (0.0-7.3) 03/27/21 15:01 Eos % (Auto) 0.0 % (0.0-4.3) 03/27/21 15:01 Baso % (Auto) 0.2 % (0.0-1.8) 03/27/21 15:01 Lymph # (Auto) 2.5 K/mm3 (1.2-5.4) 03/27/21 15:01 [place] # (Auto) 0.5 K/mm3 (0.0-0.8) 03/27/21 15:01 Eos # (Auto) 0.0 K/mm3 (0.0-0.4) 03/27/21 15:01 Baso # (Auto) 0.0 K/mm3 (0.0-0.1) 03/27/21 15:01 Add Manual Diff Complete 03/26/21 06:40 Total Counted 100 03/26/21 06:40 Seg Neutrophils % 82.7 % (40.0-70.0) H 03/27/21 15:01 Seg Neuts % (Manual) 65.0 % (40.0-70.0) 03/26/21 06:40 Band Neutrophils % 3.0 % 03/26/21 06:40 Lymphocytes % (Manual) 25.0 % (13.4-35.0) 03/26/21 06:40 Reactive Lymphs % (Man) 1.0 % 03/26/21 06:40 Monocytes % (Manual) 6.0 % (0.0-7.3) 03/26/21 06:40 Nucleated RBC % Not Reportable 03/26/21 06:40 Seg Neutrophils # 14.7 K/mm3 (1.8-7.7) H 03/27/21 15:01 Seg Neutrophils # Man 13.5 K/mm3 (1.8-7.7) H 03/26/21 06:40 Band Neutrophils # 0.6 K/mm3 03/26/21 06:40 Lymphocytes # (Manual) 5.2 K/mm3 (1.2-5.4) 03/26/21 06:40 Abs React Lymphs (Man) 0.2 K/mm3 03/26/21 06:40 Monocytes # (Manual) 1.2 K/mm3 (0.0-0.8) H 03/26/21 06:40 Eosinophils # (Manual) 0.0 K/mm3 (0.0-0.4) 03/26/21 06:40 Basophils # (Manual) 0.0 K/mm3 (0.0-0.1) 03/26/21 06:40 Metamyelocytes # 0.0 K/mm3 03/26/21 06:40 Myelocytes # 0.0 K/mm3 03/26/21 06:40 Promyelocytes # 0.0 K/mm3 03/26/21 06:40 Blast Cells # 0.0 K/mm3 03/26/21 06:40 WBC Morphology Not Reportable 03/26/21 06:40 Hypersegmented Neuts Not Reportable 03/26/21 06:40 Hyposegmented Neuts Not Reportable 03/26/21 06:40 Hypogranular Neuts Not Reportable 03/26/21 06:40 Smudge Cells 1+ 03/26/21 06:40 Toxic Granulation Not Reportable 03/26/21 06:40 Toxic Vacuolation Not Reportable 03/26/21 06:40 Dohle Bodies Not Reportable 03/26/21 06:40 Pelger-Huet Anomaly Not Reportable 03/26/21 06:40 Lion Rods Not Reportable 03/26/21 06:40 Platelet Estimate Consistent w auto 03/26/21 06:40 Clumped Platelets Not Reportable 03/26/21 06:40 Plt Clumps, EDTA Not Reportable 03/26/21 06:40 Large Platelets Not Reportable 03/26/21 06:40 Giant Platelets Not Reportable 03/26/21 06:40 Platelet Satelliting Not Reportable 03/26/21 06:40 Plt Morphology Comment Not Reportable 03/26/21 06:40 RBC Morphology Normal 03/26/21 06:40 Dimorphic RBCs Not Reportable 03/26/21 06:40 Polychromasia Not Reportable 03/26/21 06:40 Hypochromasia Not Reportable 03/26/21 06:40 Poikilocytosis Not Reportable 03/26/21 06:40 Anisocytosis Not Reportable 03/26/21 06:40 Microcytosis Not Reportable 03/26/21 06:40 Macrocytosis Not Reportable 03/26/21 06:40 Spherocytes Not Reportable 03/26/21 06:40 Pappenheimer Bodies Not Reportable 03/26/21 06:40 Sickle Cells Not Reportable 03/26/21 06:40 Target Cells Not Reportable 03/26/21 06:40 Tear Drop Cells Not Reportable 03/26/21 06:40 Ovalocytes Not Reportable 03/26/21 06:40 Helmet Cells Not Reportable 03/26/21 06:40 Schofield-[place] Bodies Not Reportable 03/26/21 06:40 [place] Rings Not Reportable 03/26/21 06:40 [place] Cells Not Reportable 03/26/21 06:40 Bite Cells Not Reportable 03/26/21 06:40 Crenated Cell Not Reportable 03/26/21 06:40 Elliptocytes Not Reportable 03/26/21 06:40 Acanthocytes (Spur) Not Reportable 03/26/21 06:40 Rouleaux Not Reportable 03/26/21 06:40 Hemoglobin C Crystals Not Reportable 03/26/21 06:40 Schistocytes Not Reportable 03/26/21 06:40 Malaria parasites Not Reportable 03/26/21 06:40 [place] Bodies Not Reportable 03/26/21 06:40 Hem Pathologist Commnt No 03/26/21 06:40 APTT 49.6 Sec. (24.2-36.6) H 03/26/21 11:50 D-Dimer 159.27 ng/mlDDU (0-234) 03/26/21 11:50 Sodium 136 mmol/L (137-145) L 03/27/21 15:01 Potassium 4.2 mmol/L (3.6-5.0) 03/27/21 15:01 Chloride 106.3 mmol/L (98-107) 03/27/21 15:01 Carbon Dioxide 19 mmol/L (22-30) L 03/27/21 15:01 Anion Gap 15 mmol/L 03/27/21 15:01 BUN 20 mg/dL (9-20) 03/27/21 15:01 Creatinine 0.8 mg/dL (0.8-1.3) 03/27/21 15:01 Estimated GFR > 60 ml/min 03/27/21 15:01 BUN/Creatinine Ratio 25 % 03/27/21 15:01 Glucose 150 mg/dL (75-100) H 03/27/21 15:01 Lactic Acid 1.00 mmol/L (0.7-2.0) 03/26/21 23:43 Calcium 7.9 mg/dL (8.4-10.2) L 03/27/21 15:01 Ferritin 284.4 ng/mL (30.0-300.0) 03/26/21 11:50 Total Bilirubin 0.20 mg/dL (0.1-1.2) 03/27/21 15:01 Direct Bilirubin 0.2 mg/dL (0-0.2) 03/26/21 06:40 Indirect Bilirubin 0.6 mg/dL 03/26/21 06:40 AST 41 units/L (5-40) H 03/27/21 15:01 ALT 70 units/L (7-56) H 03/27/21 15:01 Alkaline Phosphatase 58 units/L (35-129) 03/27/21 15:01 Lactate Dehydrogenase 165 units/L (91-180) 03/26/21 11:50 C-Reactive Protein 16.90 mg/dL (0.00-1.30) H 03/26/21 11:50 Total Protein 8.0 g/dL (6.3-8.2) 03/27/21 15:01 Albumin 2.8 g/dL (3.9-5) L 03/27/21 15:01 Albumin/Globulin Ratio 0.5 % 03/27/21 15:01 Lipase 25 units/L (13-60) 03/26/21 06:40 Procalcitonin 0.54 ng/mL (<0.15) 03/26/21 11:50 Urine Color Yellow (Yellow) 03/27/21 09:42 Urine Turbidity Clear (Clear) 03/27/21 09:42 Urine pH 5.0 (5.0-7.0) 03/27/21 09:42 Ur Specific [place] 1.018 (1.003-1.030) 03/27/21 09:42 Urine Protein <15 mg/dl mg/dL (Negative) 03/27/21 09:42 Urine Glucose (UA) Neg mg/dL (Negative) 03/27/21 09:42 Urine Ketones Neg mg/dL (Negative) 03/27/21 09:42 Urine Blood Neg (Negative) 03/27/21 09:42 Urine Nitrite Neg (Negative) 03/27/21 09:42 Urine Bilirubin Neg (Negative) 03/27/21 09:42 Urine Urobilinogen 2.0 mg/dL (<2.0) 03/27/21 09:42 Ur Leukocyte Esterase Neg (Negative) 03/27/21 09:42 Urine WBC (Auto) 1.0 /HPF (0.0-6.0) 03/27/21 09:42 Urine RBC (Auto) 2.0 /HPF (0.0-6.0) 03/27/21 09:42 Urine Mucus Few /HPF 03/27/21 09:42 Coronavirus (PCR) Negative (Negative) 03/26/21 13:02 Microbiology: Microbiology 03/26/21 09:21 Peripheral/Venous Blood Culture - Preliminary NO GROWTH AFTER 24 HOURS 03/26/21 09:21 Peripheral/Venous Blood Culture - Preliminary NO GROWTH AFTER 24 HOURS [place]/IV: Voiding Method Toilet Active Medications - Current Medications Current Medications: Generic Name Dose Route Start Last Admin Trade Name Freq PRN Reason Stop Dose Admin Acetaminophen 650 mg 03/26/21 12:32 Acetaminophen 325 Mg Tab PO Q4H PRN Pain MILD(1-3)/Fever >100.5/GUZMÁN Albuterol 2.5 mg 03/26/21 12:32 Albuterol 2.5 Mg/3 Ml Nebu IH Q4HRT PRN Shortness Of Breath Ascorbic Acid 500 mg 03/26/21 22:00 03/27/21 21:56 Ascorbic Acid 500 Mg Tab PO 500 mg BID DELGADO Administration Cholecalciferol 1,000 unit 03/27/21 10:00 03/27/21 09:35 Cholecalciferol (Vit D3) 1000 Unit (25 Mcg) Tab PO 1,000 unit QDAY DELGADO Administration Heparin Sodium (Porcine) 5,000 unit 03/26/21 22:00 03/27/21 21:56 Heparin 5,000 Unit/1 Ml Vial SUB-Q 5,000 unit Q12HR DELGADO Administration Hydromorphone HCl 0.25 mg 03/26/21 11:43 03/27/21 00:48 Hydromorphone 1 Mg/1 Ml Inj IV 0.25 mg Q4H PRN Administration Pain, Moderate (4-6) Hydromorphone HCl 0.5 mg 03/26/21 12:32 03/26/21 20:20 Hydromorphone 1 Mg/1 Ml Inj IV 0.5 mg Q3H PRN Administration Pain , Severe (7-10) Ceftriaxone Sodium 2 gm in 100 mls @ 200 mls/hr 03/26/21 14:00 03/27/21 21:40 Rocephin/Ns 2 Gm/100 Ml IV Not Given Q24H [facility] Protocol Azithromycin 500 mg in 250 mls @ 250 mls/hr 03/27/21 12:00 03/27/21 12:56 Zithromax/Ns IV 250 mls/hr Q24H [facility] Administration Protocol Methylprednisolone Sodium Succinate 40 mg 03/26/21 14:00 03/28/21 06:18 Methylprednisolone Sod Succinate 40 Mg/1 Ml Inj IV 40 mg Q8H DELGADO Administration Ondansetron HCl 4 mg 03/26/21 12:32 Ondansetron 4 Mg/2 Ml Inj IV Q8H PRN Nausea And Vomiting Oxycodone/Acetaminophen 1 tab 03/26/21 12:32 Oxycodone /Acetaminophen 5-325mg Tab PO Q12H PRN Pain, Moderate (4-6) Sodium Chloride 10 ml 03/26/21 22:00 03/27/21 21:56 Sodium Chloride 0.9% 10 Ml Flush Syringe IV 10 ml BID DELGADO Administration Sodium Chloride 10 ml 03/26/21 12:32 03/28/21 06:18 Sodium Chloride 0.9% 10 Ml Flush Syringe IV 10 ml PRN PRN Administration LINE FLUSH Zinc Sulfate 220 mg 03/26/21 22:00 03/27/21 21:55 Zinc Sulfate 220 Mg Cap PO 220 mg BID DELGADO Administration
[2021-03-28] MEDS: ASCORBIC ACID 500 MG TAB PO SCH (09:02)
[2021-03-28] MEDS: HEPARIN 5,000 UNIT/1 ML VIAL SUB-Q SCH (09:02)
[2021-03-28] MEDS: CHOLECALCIFEROL (VIT D3) 1000 UNIT (25 mcg) TAB PO SCH (09:02)
[2021-03-28] MEDS ORDERED: AZITHROMYCIN 250 MG TAB PO SCH (12:00)
[2021-03-28 12:05] VITALS: BP 107/66
[2021-03-28] MEDS: ZINC SULFATE 220 MG CAP PO SCH (13:37)
[2021-03-28] MEDS: cefTRIAXone/NS 2 GM/100 ML 2 GM/100 ML BAG IV SCH (13:37)
--- NOTE | 2021-03-28 14:04 | Progress Note ---
Assessment and Plan Cultures: Blood culture no growth so far COVID negative A/P: 45-year-old man with medical history HIV noncompliant on therapy admitted with right-sided pneumonia #Right-sided pneumonia: PCR negative, procalcitonin elevated. Unclear immune function, no HIV labs. #HIV: Unclear in status and viral load. Not on ART. #Acute sepsis: Present with fevers leukocytosis, likely secondary to pneumonia. Recs: -Ordered CD4 and viral load -Continue empiric ceftriaxone azithromycin for now -Has responded well, recommend discharge on Levaquin 750mg q24h to complete 5 more days. -As he is self-pay I recommend he follow up with IDP ([facility]) for free HIV care and medications. Discussed with Dr. March. Thank you for the consult, we will continue to follow. Roshan Barrera MD [facility] ([facility]) O: [phone] F: [phone] Subjective Date of service: 03/28/21 Interval history: Afebrile now, white count elevated at 17.8. Covid negative. Procalcitonin elevated. Objective - Exam Narrative Exam: Physical exam deferred to reduce risk of transmission of COVID-19. Please refer to primary team's note. - Constitutional Vitals: Vital Signs Temp Pulse Resp BP Pulse Ox 98.1 F 67 17 107/66 97 03/28/21 12:04 03/28/21 12:04 03/28/21 12:04 03/28/21 12:04 03/28/21 12:04 Temperature -Last 24 Hours Temperature 98.1 F Temperature 98.3 F Temperature 97.6 F - Labs CBC & Chem 7: 03/27/21 15:01 03/27/21 15:01 Labs: Abnormal lab results 03/27/21 03/27/21 Range/Units 15:01 15:01 WBC 17.8 H (4.5-11.0) K/mm3 RBC 5.13 H (3.65-5.03) M/mm3 MCV 82 L (84-94) fl MCH 27 L (28-32) pg Seg Neutrophils % 82.7 H (40.0-70.0) % Seg Neutrophils # 14.7 H (1.8-7.7) K/mm3 Sodium 136 L (137-145) mmol/L Carbon Dioxide 19 L (22-30) mmol/L Glucose 150 H (75-100) mg/dL Calcium 7.9 L (8.4-10.2) mg/dL AST 41 H (5-40) units/L ALT 70 H (7-56) units/L Albumin 2.8 L (3.9-5) g/dL
--- NOTE | 2021-03-28 14:24 | Discharge Summary ---
Providers - Providers Date of Admission: 03/26/21 12:32 Date of discharge: 03/28/21 Attending physician: LOUISA RUFF MD Infectious Disease- Dr. Barrera Primary care physician: INTERNAL AUDIT DIRECTOR Hospitalization Reason for admission: side pain Condition: Fair Hospital course: History of present illness: 45 YO Male with HIV Disease not currently taking antiretroviral therapy presents to ED for evaluation. Patient reported "my side hurts". Patient states that he has experienced right flank discomfort over the past week with persistent symptoms over the same timeframe. Patient acknowledges malaise, fever, body aches, decreased exercise tolerance over the past 1 week with persistent and worsening symptoms over the same timeframe. EMS was notified and upon arrival the patient was found to be in distress and subsequently transported to [facility] for further care and evaluation of the aforementioned symptoms. The patient was seen and evaluated in the emergency department. All lab and imaging studies reviewed. The patient was found to have a pulse oximetry of 89% on room air which is consistent with acute hypoxemic respiratory failure. Patient was found to have a temperature of 101.1 F, as well as a respiratory rate in the 30s. CT scan revealed a right lower lobe pneumonia which was complicated by sepsis. P atient admitted to medical floor and initiated on sepsis protocol as well as coronavirus protocol. Patient denies chills, chest pain, palpitation, skin rash, recent ill contact, or known exposure to COVID-19. No prior admission for review. No medication listed at time of admission for reconciliation. Patient is not vaccinated against coronavirus. hospital Course: (1) Sepsis - secondary to CAP, consolidatio - IV azithro/rocephin on admission - afebrile, breathing room air on encounter. cliically improved - d/c on levaquin 5 day course per ID - follow up at IDP clinic for HIV antiretroviral therapy (2) Acute hypoxemic respiratory failure - resolved, off of Supplemental oxygen, currently on room air (3) Community Acquired Pneumonia Pneumonia protocol: Chest x-ray, CBC, CMP, IV antibiotic therapy, supplemental oxygen, pulse oximetry, nebulizer therapy, blood culture. (4) Suspected 2019 novel coronavirus infection COVID PCR negative Educated on obtaining vaccine (5) HIV (human immunodeficiency virus infection) Infectious disease service consulted- abx recs noted plan to d/c on levaquin, discussed with Dr. Barrera (6) DVT prophylaxis Current Visit: Yes Status: Acute Plan to address problem: SCD to bilateral lower extremities while in bed, prophylactic anticoagulation 03/28: Patient significantly improved on AM encounter. No longer on oxygen. Resting comfortably. Discussed need to initiate antiretrovirals for treatment of HIV. Will discharge on levaquin 750 mg po daily x 5 day course. Instructions to follow up with IDP clinic and a primary care doctor in 3-5 days. Patient also educated of where to obtain covid 19 vaccine. Disposition: DC-01 TO HOME OR SELFCARE Final Discharge Diagnosis (Prints w/discharge instructions): Community Acquired Pneumonia Time spent for discharge: 35 - Discharge Diagnoses (1) Community acquired pneumonia Status: Acute (2) Acute hypoxemic respiratory failure Status: Acute (3) HIV (human immunodeficiency virus infection) Status: Acute Qualifiers: HIV symptom status: unspecified Qualified Code(s): B20 - Human immunodef iciency virus [HIV] disease (4) Sepsis Status: Acute Core Measure Documentation - Palliative Care Palliative Care/ Comfort Measures: Not Applicable - Core Measures Any of the following diagnoses?: none Exam - Physical Exam Narrative exam: General appearance: Present: no acute distress - EENT Eyes: Present: PERRL, EOM intact ENT: hearing intact - Neck Neck: Present: supple - Respiratory Respiratory effort: normal Respiratory: bilateral: improved aeration. fine crackles at RLL base - Cardiovascular Rhythm: regular Heart Sounds: Present: S1 & S2 - Extremities Extremities: no ischemia Peripheral Pulses: within normal limits - Abdominal General gastrointestinal: soft, non-tender, non-distended - Integumentary Integumentary: Present: clear, dry - Psychiatric Psychiatric: appropriate mood/affect, cooperative - Neurologic Neurologic: CNII-XII intact - Constitutional Vitals: Temp Pulse Resp BP Pulse Ox 98.1 F 67 17 107/66 97 03/28/21 12:04 03/28/21 12:04 03/28/21 12:04 03/28/21 12:04 03/28/21 12:04 Plan Activity: no restrictions Weight Bearing Status: Weight Bear as Tolerated Diet: regular Follow up with: PRIMARY CARE, [Primary Care Provider] - 3-5 Days Prescriptions: levoFLOXacin [Levaquin] 750 mg PO QDAY 5 Days #5 tablet
== END 2021-03-28 16:40 | disposition home or self-care (01) | DRG 974 ==
LOC: ED 06:15 → 3A 12:32 → 4A 03-28 02:32
PROVIDERS: ADMIT Internal Medicine; ATTEND Internal Medicine
DX: A41.9 Sepsis, unspecified organism (principal); J96.01 Acute respiratory failure with hypoxia; B20 Human immunodeficiency virus [HIV] disease; J18.9 Pneumonia, unspecified organism; Z20.822 Contact with and (suspected) exposure to COVID-19; Z82.49 Family history of ischemic heart disease and other diseases of the circulatory system
CPT/HCPCS: 36415; 71046; 74177; 80048; 80053; 80076; 81001; 82140; 82728; 82947; 83615; 83690; 84145; 85007; 85025; 85379; 85730; 86140; 87040; 99406; G0378; J0456; J0696; J1100; J1170; J1644; J2543; J2920; J7030; Q9967; U0003